=== PATIENT | female | born 1995 | race American Indian/Alaskan Native ===

== ENCOUNTER 2017-06-20 22:14 | Emergency (ER) | payer MEDICAID ==
[2017-06-20 22:25] VITALS: BP 109/64
[2017-06-20 23:00] LABS: Basophils % (Auto) 0.9 % (0.0-1.8); Eosinophils % (Auto) 1.3 % (0.0-4.3); Hematocrit 33.6 % (30.3-42.9); Hemoglobin 11.4 gm/dl (10.1-14.3); Mean Corpuscular HGB Conc 34 % (30-34); Mean Corpuscular Hemoglobin 32 pg (28-32); Mean Corpuscular Volume 93 fl (79-97); Platelet Count 227 K/mm3 (140-440); Red Blood Count 3.63 M/mm3 (3.65-5.03); Red Cell Distribution Width 12.7 % (13.2-15.2); White Blood Count 6.9 K/mm3 (4.5-11.0)
[2017-06-20 23:19] LABS: Alanine Aminotransferase 7 units/L (7-56); Albumin 4.6 g/dL (3.9-5); Albumin/Globulin Ratio 1.6 %; Alkaline Phosphatase 40 units/L (35-129); Anion Gap 18 mmol/L; BUN/Creatinine Ratio 23; Blood Urea Nitrogen 14 mg/dL (7-17); Calcium 9.2 mg/dL (8.4-10.2); Carbon Dioxide 24 mmol/L (22-30); Chloride 99.7 mmol/L (98-107); Glucose 88 mg/dL (65-100); Lipase 49 units/L (13-60); Potassium 3.4 mmol/L (3.6-5.0); Sodium 138 mmol/L (137-145); Total Protein 7.5 g/dL (6.3-8.2)
== END 2017-06-20 22:47 | disposition left against medical advice (07) ==
LOC: ED 22:14
DX: R10.9 Unspecified abdominal pain (principal); Z53.21 Procedure and treatment not carried out due to patient leaving prior to being seen by health care provider
CPT/HCPCS: 36415; 80053; 83690; 84703; 85025

== ENCOUNTER 2017-06-22 10:41 | Emergency (ER) | payer MEDICAID ==
--- NOTE | 2017-06-22 12:10 | Emergency Department Report ---
Chief Complaint: Abdominal Pain Stated Complaint: ABDOMINAL PAIN Time Seen by Provider: 06/22/17 12:05 - HPI History of Present Illness: 22-year-old female presents to ED complaining of lower mid pelvic pain 3 days. Patient states she was here 3 days ago but was not seen because she left. Patient denies fever, dysuria, vaginal bleeding, nausea, vomiting. states last menstrual period as 05/25/2017. - ROS Review of Systems: As noted in HPI - Exam Vital Signs: Vital Signs 06/22/17 10:45 Temperature 98.4 F Pulse Rate 107 H Respiratory 20 Rate Blood Pressure 106/68 O2 Sat by Pulse 99 Oximetry Physical Exam: GENERAL: Alert and oriented x3, no apparent distress, Normal Gait, atraumatic. ABDOMEN: No organomegaly was noted,Positive bowel sounds, soft, and non- distended. . tender to palpation at mid pelvic, nontender to the region, NO CVA tenderness. SKIN: Warm and dry, No lesions, No ulceration or induration present. MSE screening note: Focused history and physical exam performed. Due to findings the following was ordered: ED Medical Decision Making - Medical Decision Making 22-year-old female, stable presents in the pelvis. Urinalysis, urine test ordered. I reviewed labs from 06/20/2017 CBC and CMP within normal limits. preg test negative. Pelvic ultrasound ordered. Patient to be seen fast track provider ED Disposition for MSE Condition: Stable Instructions: Abdominal Pain (ED)
--- NOTE | 2017-06-22 14:11 | Ultrasound Report ---
ULTRASOUND PELVIC COMPLETE ULTRASOUND TRANSVAGINAL HISTORY: Pelvic pain. COMPARISON: None. TECHNIQUE: Transabdominal and transvaginal ultrasound with color doppler interrogation. FINDINGS: Uterus: The uterus is anteverted and measures 9.8 x 4.7 x 5.8 cm. No uterine fibroid disease is identified. The cervix is unremarkable. Endometrium: Homogeneous and measures 4 mm. Right ovary: 3.7 x 1.9 x 3.5 cm. Multiple follicles are noted. Left ovary: 2.7 x 1.7 x 2.7 cm. Multiple follicles are noted. There is moderate free fluid in the cul-de-sac of uncertain etiology. IMPRESSION: Moderate free fluid in the pelvis. The uterus and ovaries are unremarkable.
[2017-06-22 15:53] LABS: Bacteria,Urine 1+ /HPF (Negative); Bilirubin,Urine NEG (Negative); Blood,Urine NEG (Negative); Ketones,Urine NEG (Negative); Leukocyte Esterase,Urine NEG (Negative); Mucus,Urine 3+ /HPF; Nitrite,Urine NEG (Negative); Protein,Urine <15 mg/dL mg/dL (Negative); Urobilinogen,Urine < 2.0 mg/dL (<2.0)
[2017-06-22] MEDS ORDERED: ZOFRAN ODT PO ONE (16:47)
[2017-06-22] MEDS ORDERED: NORCO 5/325 PO ONE (16:47)
[2017-06-22 17:37] LABS: Basophils % (Auto) 0.7 % (0.0-1.8); Eosinophils % (Auto) 1.6 % (0.0-4.3); Mean Corpuscular HGB Conc 34 % (30-34); Mean Corpuscular Hemoglobin 32 pg (28-32); Mean Corpuscular Volume 93 fl (79-97); Platelet Count 211 K/mm3 (140-440); Red Blood Count 3.76 M/mm3 (3.65-5.03); Red Cell Distribution Width 12.4 % (13.2-15.2)
[2017-06-22 17:50] LABS: Anion Gap 18 mmol/L; BUN/Creatinine Ratio 28; Blood Urea Nitrogen 11 mg/dL (7-17); Carbon Dioxide 23 mmol/L (22-30); Chloride 100.2 mmol/L (98-107); Glucose 78 mg/dL (65-100); Potassium 3.4 mmol/L (3.6-5.0); Sodium 138 mmol/L (137-145)
[2017-06-22] MEDS ORDERED: NACL ONE (20:38)
--- NOTE | 2017-06-22 21:27 | Cat Scan Report ---
FINAL REPORT PROCEDURE: CT ABDOMEN PELVIS W CON TECHNIQUE: Computerized axial tomography of the abdomen and pelvis was performed after the IV injection of iodinated nonionic contrast. HISTORY: rlq pain ? appendicitis?? COMPARISON: No prior studies are available for comparison. FINDINGS: Visualized lower thorax: No significant abnormality. Liver: Normal size and attenuation. Spleen: Normal size and attenuation. Gallbladder and biliary system: Normal. Pancreas: Normal. Adrenals: Normal. Kidneys: Normal. GI tract: Small bowel loops are within normal limits. Moderate amount of residual stool is noted. Appendix is normal.. Lymph nodes and mesentery: Normal. Vasculature: Normal. Bladder: Normal. Reproductive organs: Normal. Peritoneum: Mild degree of free fluid is noted in the pelvic cavity which is within physiologic limits.. Musculoskeletal structures: No significant abnormality. Other: None. IMPRESSION: Mild degree free fluid is noted in the pelvic cavity which and within physiologic limits. No acute intra-abdominal or pelvic pathology.
[2017-06-22] MEDS ORDERED: ROCEPHIN IM ONE (21:32)
[2017-06-22] MEDS ORDERED: ZITHROMAX PO ONE (21:32)
[2017-06-22] MEDS ORDERED: XYLOCAINE 1% MPF 5 mL INFILTRATI ONE (21:32)
--- NOTE | 2017-06-22 21:37 | Emergency Department Report ---
ED Abdominal Pain HPI - General Chief Complaint: Abdominal Pain Stated Complaint: ABDOMINAL PAIN Time Seen by Provider: 06/22/17 12:05 Source: patient Mode of arrival: Ambulatory Limitations: No Limitations - History of Present Illness Initial Comments: 22-year-old female past medical history none presents with complaint of persistent lower abdominal/pelvic pain. Patient denies vaginal bleeding fever chills states she feels some nausea. Patient states the pain in his lower abdomen. Sexually active. Denies history of STDs. Last menstrual period 05/25. Patient states she came to the ED 3 days ago but left before being seen. Patient states she also went to [facility] last night but left before being assessed. Patient awake alert and oriented 3. Pain currently 6 out of 10. Nontoxic-appearing. MD Complaint: abdominal pain Onset/Timin -: days(s) Location: suprapubic Migration to: no migration Severity: mild Severity scale (0 -10): 10 Quality: cramping Consistency: constant Worsens With: nothing - Related Data LMP Date: 05/25/17 LMP (females 10-50): 1 month Previous Rx's Medication Instructions Recorded Last Taken Type Doxycycline [Vibramycin CAP] 100 mg PO Q12HR #28 capsule 06/22/17 Unknown Rx Ibuprofen [Motrin] 600 mg PO Q8H PRN #30 tablet 06/22/17 Unknown Rx Allergies Allergy/AdvReac Type Severity Reaction Status Date / Time No Known Allergies Allergy Unverified 06/20/17 22:18 ED Review of Systems ROS: Stated complaint: ABDOMINAL PAIN Other details as noted in HPI Constitutional: denies: chills, fever Eyes: denies: eye pain, eye discharge, vision change ENT: denies: ear pain, throat pain Respiratory: denies: cough, shortness of breath, wheezing Cardiovascular: denies: chest pain, palpitations Endocrine: no symptoms reported Gastrointestinal: denies: abdominal pain, nausea, diarrhea Genitourinary: as per HPI. denies: urgency, dysuria, discharge Musculoskeletal: denies: back pain, joint swelling, arthralgia Skin: denies: rash, lesions Neurological: denies: headache, weakness, paresthesias Psychiatric: denies: anxiety, depression Hematological/Lymphatic: denies: easy bleeding, easy bruising ED Past Medical Hx - Past Medical History Previous Medical History?: Yes Additional medical history: Abd pain, Vaginal delivery x 1 - Surgical History Past Surgical History?: No - Social History Smoking Status: Never Smoker Substance Use Type: None - Medications Home Medications: Home Medications Medication Instructions Recorded Confirmed Last Taken Type Doxycycline [Vibramycin CAP] 100 mg PO Q12HR #28 capsule 06/22/17 Unknown Rx Ibuprofen [Motrin] 600 mg PO Q8H PRN #30 tablet 06/22/17 Unknown Rx ED Physical Exam - General Limitations: No Limitations General appearance: alert, in no apparent distress - Head Head exam: Present: atraumatic, normocephalic - Eye Eye exam: Present: normal appearance, PERRL, EOMI - ENT ENT exam: Present: mucous membranes moist - Neck Neck exam: Present: normal inspection - Respiratory Respiratory exam: Present: normal lung sounds bilaterally. Absent: respiratory distress - Cardiovascular Cardiovascular Exam: Present: regular rate, normal rhythm. Absent: systolic murmur, diastolic murmur, rubs, gallop - GI/Abdominal GI/Abdominal exam: Present: soft (+ suprapubic pain), normal bowel sounds - External exam: Present: normal external exam Speculum exam: Present: normal speculum exam (+ CMT) Bi-manual exam: Present: cervical motion tendernes - Extremities Exam Extremities exam: Present: normal inspection - Back Exam Back exam: Present: normal inspection - Neurological Exam Neurological exam: Present: alert, oriented X3, CN II-XII intact, normal gait - Psychiatric Psychiatric exam: Present: normal affect, normal mood - Skin Skin exam: Present: warm, dry, intact, normal color. Absent: rash ED Course Vital Signs 06/22/17 10:45 Temperature 98.4 F Pulse Rate 107 H Respiratory 20 Rate Blood Pressure 106/68 O2 Sat by Pulse 99 Oximetry ED Medical Decision Making - Lab Data Result diagrams: 06/22/17 17:15 06/22/17 17:15 - Medical Decision Making A/P: suprapubic pain, abdominal pain, PID 1-CT and ultrasound shows small amount of free pelvic fluid. No appendicitis no ovarian torsion. As patient has CMT I will treat patient for PID empirically with azithromycin and ceftriaxone and doxycycline 2-follow-up with primary care and [facility] 3-Motrin 600 when necessary 4-GC sent, wet prep unremarkable Critical care attestation.: If time is entered above; I have spent that time in minutes in the direct care of this critically ill patient, excluding procedure time. ED Disposition Clinical Impression: PID (acute pelvic inflammatory disease), Pelvic pain Disposition: TO HOME OR SELFCARE Is pt being admited?: No Does the pt Need Aspirin: No Condition: Stable Instructions: Abdominal Pain (ED), Pelvic Inflammatory Disease (ED) Prescriptions: Doxycycline [Vibramycin CAP] 100 mg PO Q12HR #28 capsule Ibuprofen [Motrin] 600 mg PO Q8H PRN #30 tablet PRN Reason: Pain Referrals: [facility] [Provider Group] - 3-5 Days [facility] [Outside] - 3-5 Days [facility] [Outside] - 3-5 Days [facility] [Provider Group] - 3-5 Days Forms: Work/School Release Form(ED) Time of Disposition: 21:40
[2017-06-23 00:49] VITALS: BP 98/69
== END 2017-06-22 22:20 | disposition home or self-care (01) ==
LOC: ED 10:41
DX: N73.9 Female pelvic inflammatory disease, unspecified (principal); R10.2 Pelvic and perineal pain
CPT/HCPCS: 36415; 74177; 76830; 76856; 80048; 81001; 82140; 84702; 85025; 87210; 87591; 96372; 99285; J0696; Q9967; Q0162

== ENCOUNTER 2018-01-19 12:25 | Outpatient (CLI) | payer MEDICAID ==
--- NOTE | 2018-01-19 14:24 | Fluoroscopy Report ---
HYSTEROSALPINGOGRAM: History: Infertility. Informed consent was obtained. Standard sterile prep and drape was employed. The catheter tip was subsequently placed within the uterine lumen via cervix. The small balloon on the tip of the catheter was inflated. Retrograde injection opacifies normal appearing uterine lumen. There is prompt filling of the fallopian tubes with prompt bilateral spillage. The uterine lumen demonstrates no evidence for extrinsic compression or intrinsic mass. 11 fluoroscopic images were captured during this exam. IMPRESSION: Normal hysterosalpingogram.
== END 2018-01-19 12:26 | disposition home or self-care (01) ==
LOC: FLUORO 12:25
PROVIDERS: ATTEND Obstetrics & Gynecology
DX: N97.1 Female infertility of tubal origin (principal)
CPT/HCPCS: 58340; 74740; Q9967